=== PATIENT | female | born 1960 | race Hispanic/Latino ===

== ENCOUNTER 2016-12-28 22:54 | Emergency (ER) | payer BC ==
[~2016-12-28] VITALS: Ht 160 cm; Wt 77.3 kg
[~2016-12-28 22:54] MED LIST: DIABETA5 MG OR; PRAVACHOL20 MG OR; ULTRAM50 M1 PO
[2016-12-28] MEDS ORDERED: LISINOPRIL2.5 MG PO (23:25)
[2016-12-29] MEDS ORDERED: ULTRAM50 M1 PO (00:25)
[2016-12-29 00:49] VITALS: BP 117/58
== END 2016-12-29 00:52 | disposition home or self-care (01) | DRG 605 ==
LOC: ED 22:54
DX: S00.93XA Contusion of unspecified part of head, initial encounter (principal); S13.9XXA Sprain of joints and ligaments of unspecified parts of neck, initial encounter; W01.0XXA Fall on same level from slipping, tripping and stumbling without subsequent striking against object, initial encounter; Y92.007 Garden or yard of unspecified non-institutional (private) residence as the place of occurrence of the external cause

== ENCOUNTER 2020-02-16 13:17 | Emergency (ER) | payer MEDICARE, MEDICAID ==
[~2020-02-16] VITALS: Ht 160 cm; Wt 60.9 kg
[~2020-02-16 13:17] MED LIST changes: +LISINOPRIL2.5 MG PO
[2020-02-16] MEDS ORDERED: KEFLEX500 MG PO (13:59)
[2020-02-16 14:15] VITALS: BP 136/65
== END 2020-02-16 14:15 | disposition home or self-care (01) ==
LOC: ED 13:17
DX: S51.841A Puncture wound with foreign body of right forearm, initial encounter (principal); I10 Essential (primary) hypertension; E11.9 Type 2 diabetes mellitus without complications; W26.8XXA Contact with other sharp object(s), not elsewhere classified, initial encounter; W45.8XXA Other foreign body or object entering through skin, initial encounter; Y93.H9 Activity, other involving exterior property and land maintenance, building and construction; Y92.71 Barn as the place of occurrence of the external cause; Z79.84 Long term (current) use of oral hypoglycemic drugs

== ENCOUNTER 2020-10-01 05:40 | Emergency (ER) | payer MEDICARE, MEDICAID ==
[~2020-10-01 05:40] MED LIST changes: +KEFLEX500 MG PO
[2020-10-01] MEDS ORDERED: AUGMENTIN500TAB PO (06:12)
[2020-10-01] MEDS ORDERED: TRAMADOL HYDROC50 M1 PO (06:15)
[2020-10-01 06:28] VITALS: BP 174/84
== END 2020-10-01 06:34 | disposition home or self-care (01) ==
LOC: ED 05:40
DX: H66.91 Otitis media, unspecified, right ear (principal); E11.9 Type 2 diabetes mellitus without complications; I10 Essential (primary) hypertension; Z79.84 Long term (current) use of oral hypoglycemic drugs